=== PATIENT | male | born 1980 | race Caucasian/White ===

== ENCOUNTER 2017-04-30 10:57 | Emergency (ER) | payer BC ==
--- NOTE | 2017-04-30 11:06 | ED ---
Throat Pain/Nasal Congestion - HPI Summary HPI Summary: Pt here w/ Rt sided facial swelling. Woke with swelling this morning. No pain unless he sleeps on this side of his face. Had a ROWE yesterday but none today. Denies dental pain, dysphagia, rash, fever, chills, dyspnea, chest pain, SOB, neck pain, otalgia, rhinorrhea, ocular pain, change in vision, dizziness, ab pain, N/V/D. Has poor dentition but no pain or drainage at present. Has not tried anything for treatment of swelling yet. - History of Current Complaint Chief Complaint: EDDentalPain Time Seen by Provider: 04/30/17 11:06 Hx Obtained From: Patient - Allergies/Home Medications Allergies/Adverse Reactions: Allergies Allergy/AdvReac Type Severity Reaction Status Date / Time No Known Allergies Allergy Verified 01/25/16 10:58 PMH/Surg Hx/FS Hx/Imm Hx Previously Healthy: Yes Endocrine/Hematology History: Denies: Hx Anticoagulant Therapy, Autoimmune Disease Infectious Disease History: Denies: Traveled Outside the in Last 30 Days - Social History Occupation: Employed Full-time Lives: Alone Alcohol Use: Occasionally Hx Substance Use: No Substance Use Type: Reports: None Hx Tobacco Use: Yes Smoking Status (MU): Current Every Day Smoker Amount Used/How Often: <1/2 PPD Review of Systems Constitutional: Negative Eyes: Negative ENT: Negative Cardiovascular: Negative Respiratory: Negative Gastrointestinal: Negative Positive: no symptoms reported Musculoskeletal: Negative Skin: Other - see HPI Negative: Rash Neurological: Negative Psychological: Normal All Other Systems Reviewed And Are Negative: Yes Physical Exam Triage Information Reviewed: Yes Vital Signs On Initial Exam: Initial Vitals Temp Pulse Resp BP Pulse Ox 97.9 F 100 17 152/97 97 04/30/17 11:00 04/30/17 11:00 04/30/17 11:00 04/30/17 11:00 04/30/17 11:00 Vital Signs Reviewed: Yes Appearance: Positive: Well-Appearing, No Pain Distress, Well-Nourished Skin: Positive: Warm, Dry - mild edema of Rt side face - mild blunting of nasolabial fold; no erythema or lesions on affected side of face - mild TTP Head/Face: Positive: Other - as above Eyes: Positive: Normal, EOMI - non-painful, LEMUEL, Conjunctiva Clear. Negative: Conjunctiva Inflammed, Discharge ENT: Positive: Normal ENT inspection, Hearing grossly normal, Pharynx normal, TMs normal. Negative: Nasal congestion, Nasal drainage, Tonsillar swelling, Tonsillar exudate, Trismus, Muffled/hoarse voice, Dental tenderness Dental: Positive: Gross Decay/Caries @ - all NTTP Neck: Positive: Supple, Nontender, No Lymphadenopathy Respiratory/Lung Sounds: Positive: Clear to Auscultation, Breath Sounds Present. Negative: Stridor Cardiovascular: Positive: Normal, RRR Abdomen Description: Positive: Nontender, Soft Musculoskeletal: Positive: Normal, Strength/ROM Intact Neurological: Positive: Normal, Sensory/Motor Intact, Alert, Oriented to Person Place, Time, CN Intact II-III Psychiatric: Positive: Normal Diagnostics - Vital Signs Vital Signs Temp Pulse Resp BP Pulse Ox 04/30/17 11:00 97.9 F 100 17 152/97 97 - Laboratory Lab Statement: Any lab studies that have been ordered have been reviewed, and results considered in the medical decision making process. EENT Course/Dx - Diagnoses Provider Diagnoses: Facial abscess Discharge - Discharge Plan Condition: Stable Disposition: HOME Prescriptions: Clindamycin HCl [Clindamycin 150 MG CAP*] 300 mg PO QID #79 cap Patient Education Materials: Abscess (ED) Forms: *Work Release Referrals: Vladimir Olmedo [Primary Care Provider] - Additional Instructions: Apply heat pack or ice You may take ibuprofen with food for swelling Follow-up with dentist this week - call today to schedule appointment *If you develop fever, chills, headache, neck pain, pain with eyes, vomiting, trouble breathing or swallowing, return to ED
[2017-04-30 11:09] VITALS: BP 156/90
[2017-04-30] MEDS ORDERED: Ibuprofen TAB* 600 MG PO ONE (11:30)
[2017-04-30] MEDS ORDERED: Clindamycin CAP* 150 MG PO ONE (11:30)
== END 2017-04-30 12:21 | disposition home or self-care (01) ==
LOC: ED 10:57
DX: L02.01 Cutaneous abscess of face (principal); F17.210 Nicotine dependence, cigarettes, uncomplicated
CPT/HCPCS: 99282; A9270-GY

== ENCOUNTER 2018-07-25 09:37 | Emergency (ER) | payer BC ==
[2018-07-25 09:43] VITALS: BP 142/87
--- NOTE | 2018-07-25 10:21 | UC ---
Knee Pain HPI - HPI Summary HPI Summary: 38 y/o male with no prior knee injuries, complaints presents after fall on ice wednesday, unsure of how fell but went "down hard" onto knee, laid in snow for 20 minutes, able to walk afterwards, but + ambulation. took tylenol last night, mild relief. pain continues without improvement, back of knee radiating into calf. denies back pain, ankle pain. + tingling in toes over past 24 hours. - History of Current Complaint Chief Complaint: UCLowerExtremity Stated Complaint: L KNEE INJURY Time Seen by Provider: 07/25/18 10:06 Hx Obtained From: Patient Onset/Duration: Sudden Onset, Lasting Days - since 07/23, Still Present - no improvement Severity Initially: Severe Severity Currently: Severe Pain Intensity: 9 Pain Scale Used: 0-10 Numeric Character: Sharp, Dull Aggravating Factor(s): Movement, Weight Bearing, Prolonged Standing, Stairs Alleviating Factor(s): Rest Associated Signs And Symptoms: Positive: Swelling, Bruising Able to Bear Weight: No - but painful - Allergies/Home Medications Allergies/Adverse Reactions: Allergies Allergy/AdvReac Type Severity Reaction Status Date / Time No Known Allergies Allergy Verified 07/25/18 09:43 PMH/Surg Hx/FS Hx/Imm Hx Previously Healthy: Yes - no prior knee injury Other History Of: Negative For: Anticoagulant Therapy - Surgical History Surgical History: Yes Surgery Procedure, Year, and Place: cyst removed - Social History Alcohol Use: Occasionally Alcohol Amount: 2-3 beers daily Substance Use Type: None Smoking Status (MU): Heavy Every Day Tobacco Smoker Amount Used/How Often: <1/2 PPD Review of Systems All Other Systems Reviewed And Are Negative: Yes Constitutional: Negative: Negative Motor: Positive: Decreased ROM Musculoskeletal: Positive: Decreased ROM, Edema, Myalgia Is Patient Immunocompromised?: No Physical Exam Triage Information Reviewed: Yes Appearance: Well-Appearing, Well-Nourished, Pain Distress - mild to moderate with movement of L knee Vital Signs: Initial Vital Signs Temp 99.2 F 07/25/18 09:40 Pulse 100 07/25/18 09:40 Resp 18 07/25/18 09:40 BP 142/87 07/25/18 09:40 Pulse Ox 100 07/25/18 09:40 Vital Signs Reviewed: Yes Eyes: Positive: Conjunctiva Clear Musculoskeletal: Positive: No Edema. Negative: Strength Intact, ROM Intact - decreased ROM L knee due to pain, 10-90, able to PROM fully extend but + pain. no instability with linda/ zayda stressing, neg ant/ post drawer but + pain, + pain med/ lat with jasmine Neurological Exam: Normal Neurological: Positive: Alert, Muscle Tone Normal Psychological Exam: Normal Skin Exam: Normal Skin: Positive: Other - no open wounds, sores, mild resolving ecchymosis over lat tib platuea. Negative: Breakdown Knee Pain Course/Dx - Course Course Of Treatment: radiograph neg for alem abnormal, referral to ortho due to pain, NSAIDs, ice elevation, crutches - Differential Dx/Diagnosis Differential Diagnosis/HQI/PQRI: Sprain, Strain Provider Diagnosis: Knee sprain Discharge - Sign-Out/Discharge Documenting (check all that apply): Patient Departure All imaging exams completed and their final reports reviewed: Yes - Discharge Plan Condition: Good Disposition: HOME Prescriptions: Naproxen [Naproxen 250 mg tab] 250 mg PO BID #60 tablet Patient Education Materials: Knee Pain (ED) Forms: *Work Release Referrals: No Primary Care Phys,NOPCP [Primary Care Provider] - Additional Instructions: - Call placed to ortho, will call for appointment [phone] - Ice, elevate, rest- use crutches - Work note given - David/ naproxen for pain - Billing Disposition and Condition Condition: GOOD Disposition: Home
== END 2018-07-25 11:15 | disposition home or self-care (01) ==
LOC: UCEAST 09:37
DX: S83.92XA Sprain of unspecified site of left knee, initial encounter (principal); W00.0XXA Fall on same level due to ice and snow, initial encounter; Y92.9 Unspecified place or not applicable; F17.210 Nicotine dependence, cigarettes, uncomplicated
CPT/HCPCS: 99213; G0463